=== PATIENT | male | born 1960 | race African-American/Black ===

== ENCOUNTER 2020-09-29 22:05 | Inpatient (IN) | payer MEDICAID, OTHER ==
[~2020-09-29] VITALS: Ht 185.4 cm; Wt 134.8 kg
[2020-09-30] MEDS ORDERED: CLINDAMYCIN 900MG IV 50 ML IV ONE (04:15)
[2020-09-30] MEDS ORDERED: MORPHINE SULF INJ 2 MG/ML SYRINGE 1ML IV ONE (04:15)
[2020-09-30 05:39] LABS: Basophils # (auto) 0 10 ^3/uL (0-0.2); Basophils % (auto) 1.1 % (0.0-2.0); Eosinophils # (auto) 0 10 ^3/uL (0-0.8); Eosinophils % (auto) 1.1 % (0.0-7.0); Hematocrit 40.5 % (41.0-53.0); Hemoglobin 13.6 g/dL (13.5-17.5); Lymphocytes % (auto) 35.6 % (10.0-50.0); Mean Corpuscular Hemoglobin 30.9 pg (28.0-32.0); Mean Corpuscular Hgb Conc. 33.5 g/dL (32.0-36.0); Mean Corpuscular Volume 92.3 fL (80.0-100.0); Monocytes # (auto) 0.3 10 ^3/uL (0-1.3); Monocytes % (auto) 9.2 % (0.0-12.0); Neutrophils # (auto) 1.5 10 ^3/uL (1.6-8.6); Nucleated Red Blood Cells % 0.1 %; Platelet Count (auto) 209 10^3/uL (140-450); Red Blood Cells 4.39 10^6/uL (4.5-5.90); Red Cell Distribution Width 14.3 % (11.8-14.3); White Blood Cell 2.9 10^3/uL (4.4-10.8)
[2020-09-30 06:08] LABS: Albumin 3.3 g/dL (3.4-5.0); Calcium 7.6 mg/dL (8.5-10.1); Potassium 3.4 mmol/L (3.5-5.1)
[2020-09-30 06:12] LABS: Bilirubin, Total 0.6 mg/dL (0.2-1.0); Total Protein 7.5 g/dL (6.4-8.2)
[2020-09-30 07:53] LABS: BUN/Creatinine Ratio 16.9
[2020-09-30] MEDS ORDERED: ONDANSETRON HCL 4 MG/2 ML VIAL IV PRN (08:00)
[2020-09-30] MEDS ORDERED: MORPHINE SULF INJ 2 MG/ML SYRINGE 1ML IV PRN (08:00)
[2020-09-30] MEDS ORDERED: NITROGLYCERIN 0.4 MG SL TAB SL PRN (08:00)
[2020-09-30] MEDS ORDERED: ACETAMINOPHEN 325 MG TAB PO PRN (08:00)
[2020-09-30] MEDS ORDERED: DOCUSATE SOD 100 MG CAP PO PRN (08:00)
[2020-09-30] MEDS ORDERED: POTASSIUM CHL 20 Meq TABLET PO ONE (08:15)
[2020-09-30 09:38] LABS: Basophils # (auto) 0 10 ^3/uL (0-0.2); Basophils % (auto) 1.2 % (0.0-2.0); Eosinophils # (auto) 0 10 ^3/uL (0-0.8); Eosinophils % (auto) 1.4 % (0.0-7.0); Hematocrit 42.8 % (41.0-53.0); Hemoglobin 14.5 g/dL (13.5-17.5); Lymphocytes # (auto) 0.8 10 ^3/uL (0.4-5.4); Lymphocytes % (auto) 30.1 % (10.0-50.0); Mean Corpuscular Hemoglobin 31.1 pg (28.0-32.0); Mean Corpuscular Hgb Conc. 33.9 g/dL (32.0-36.0); Mean Corpuscular Volume 91.9 fL (80.0-100.0); Monocytes # (auto) 0.3 10 ^3/uL (0-1.3); Monocytes % (auto) 10.6 % (0.0-12.0); Neutrophils # (auto) 1.5 10 ^3/uL (1.6-8.6); Neutrophils % (auto) 56.7 % (37.0-80.0); Platelet Count (auto) 222 10^3/uL (140-450); Red Blood Cells 4.66 10^6/uL (4.5-5.90); White Blood Cell 2.6 10^3/uL (4.4-10.8)
[2020-09-30 09:53] LABS: Albumin 3.6 g/dL (3.4-5.0); Calcium 8.7 mg/dL (8.5-10.1); Potassium 3.3 mmol/L (3.5-5.1)
[2020-09-30 09:57] LABS: BUN/Creatinine Ratio 15.9; Bilirubin, Total 0.5 mg/dL (0.2-1.0); Total Protein 8.2 g/dL (6.4-8.2)
[2020-09-30] MEDS: FAMOTIDINE 20 MG TAB PO SCH ×2 (11:02→22:00)
[2020-09-30] MEDS: MULTIPLE VITAMIN TAB PO SCH (11:02)
[2020-09-30] MEDS: ENOXAPARIN SOD 60 MG/0.6 ML SYRINGE SC SCH ×2 (11:02→22:00)
[2020-09-30] MEDS: ASCORBIC ACID 500 MG TAB PO SCH ×2 (11:02→22:00)
[2020-09-30] MEDS: ZINC SULFATE 220mg CAP or TAB PO SCH (11:02)
[2020-09-30] MEDS: SODIUM CHLOR 0.9% PF (SALINE LOCK) 10ML VIAL/SYR IV SCH ×2 (14:35→22:00)
[2020-09-30] MEDS: PIPERACILLIN-TAZOB 3.375GM 100 ML IV SCH ×2 (14:42→22:00)
[2020-09-30 21:25] VITALS: BP 122/68
[2020-09-30 22:00] VITALS: BP 120/74
[2020-10-01] MEDS ORDERED: HYDR25TA4 PO (02:26)
[2020-10-01] MEDS ORDERED: ASPI325T4 PO (02:26)
[2020-10-01] MEDS ORDERED: DIVA250T12 PO (02:26)
[2020-10-01 05:00] VITALS: BP 126/67
[2020-10-01] MEDS: HYDROcodone-ACET 5/325MG TAB PO PRN ×2 (05:00→22:30)
[2020-10-01] MEDS: SODIUM CHLOR 0.9% PF (SALINE LOCK) 10ML VIAL/SYR IV SCH ×3 (05:13→21:08)
[2020-10-01] MEDS: PIPERACILLIN-TAZOB 3.375GM 100 ML IV SCH ×3 (06:15→21:06)
[2020-10-01 08:00] VITALS: BP 114/71
[2020-10-01 08:15] LABS: Basophils # (auto) 0 10 ^3/uL (0-0.2); Basophils % (auto) 0.9 % (0.0-2.0); Eosinophils # (auto) 0.1 10 ^3/uL (0-0.8); Eosinophils % (auto) 2.1 % (0.0-7.0); Hematocrit 38.2 % (41.0-53.0); Hemoglobin 12.9 g/dL (13.5-17.5); Lymphocytes # (auto) 0.7 10 ^3/uL (0.4-5.4); Lymphocytes % (auto) 27.6 % (10.0-50.0); Mean Corpuscular Hemoglobin 31.3 pg (28.0-32.0); Mean Corpuscular Hgb Conc. 33.9 g/dL (32.0-36.0); Mean Corpuscular Volume 92.4 fL (80.0-100.0); Monocytes # (auto) 0.3 10 ^3/uL (0-1.3); Monocytes % (auto) 13.6 % (0.0-12.0); Neutrophils # (auto) 1.4 10 ^3/uL (1.6-8.6); Neutrophils % (auto) 55.8 % (37.0-80.0); Nucleated Red Blood Cells % 0.1 %; Platelet Count (auto) 191 10^3/uL (140-450); Red Blood Cells 4.13 10^6/uL (4.5-5.90); Red Cell Distribution Width 14.6 % (11.8-14.3); White Blood Cell 2.5 10^3/uL (4.4-10.8)
[2020-10-01 08:30] LABS: Potassium 3.7 mmol/L (3.5-5.1)
[2020-10-01 08:44] LABS: Bilirubin, Total 0.4 mg/dL (0.2-1.0); Calcium 8.3 mg/dL (8.5-10.1)
[2020-10-01] MEDS ORDERED: POTASSIUM CHL 20 Meq TABLET PO ONE (08:45)
[2020-10-01] MEDS: ZINC SULFATE 220mg CAP or TAB PO SCH (10:07)
[2020-10-01] MEDS: MULTIPLE VITAMIN TAB PO SCH (10:08)
[2020-10-01] MEDS: ENOXAPARIN SOD 60 MG/0.6 ML SYRINGE SC SCH ×2 (10:09→21:07)
[2020-10-01] MEDS: ASCORBIC ACID 500 MG TAB PO SCH ×2 (10:09→21:09)
[2020-10-01] MEDS: FAMOTIDINE 20 MG TAB PO SCH ×2 (10:09→21:06)
[2020-10-01] MEDS: MORPHINE SULFATE 4 MG/ML SYR/VIAL IV PRN (21:08)
[2020-10-01 22:00] VITALS: BP 132/72
[2020-10-02 05:00] VITALS: BP_SYST 129; BP_SYST 136; BP_DIAS 84
[2020-10-02] MEDS: SODIUM CHLOR 0.9% PF (SALINE LOCK) 10ML VIAL/SYR IV SCH ×3 (05:10→21:45)
[2020-10-02] MEDS: PIPERACILLIN-TAZOB 3.375GM 100 ML IV SCH ×3 (05:11→21:45)
[2020-10-02] MEDS: MORPHINE SULFATE 4 MG/ML SYR/VIAL IV PRN ×3 (05:16→21:12)
[2020-10-02 07:32] VITALS: BP 111/79
[2020-10-02] MEDS: ZINC SULFATE 220mg CAP or TAB PO SCH (09:09)
[2020-10-02] MEDS: FAMOTIDINE 20 MG TAB PO SCH ×2 (09:09→21:45)
[2020-10-02] MEDS: MULTIPLE VITAMIN TAB PO SCH (09:10)
[2020-10-02] MEDS: ASCORBIC ACID 500 MG TAB PO SCH ×2 (09:10→21:45)
[2020-10-02] MEDS: HCTZ 25 MG TAB PO SCH (09:10)
[2020-10-02] MEDS: ENOXAPARIN SOD 60 MG/0.6 ML SYRINGE SC SCH ×2 (09:14→21:45)
[2020-10-02] MEDS ORDERED: ASPirin 325 MG TAB PO SCH (10:00)
[2020-10-02 16:00] VITALS: BP 117/90
[2020-10-02 22:00] VITALS: BP 134/78
[2020-10-03 05:00] VITALS: BP 119/83
[2020-10-03] MEDS: SODIUM CHLOR 0.9% PF (SALINE LOCK) 10ML VIAL/SYR IV SCH ×3 (06:30→22:12)
[2020-10-03] MEDS: PIPERACILLIN-TAZOB 3.375GM 100 ML IV SCH ×3 (06:30→22:14)
[2020-10-03 08:00] VITALS: BP 132/85
[2020-10-03] MEDS: ASCORBIC ACID 500 MG TAB PO SCH ×2 (10:00→22:14)
[2020-10-03] MEDS: HCTZ 25 MG TAB PO SCH (10:00)
[2020-10-03] MEDS: ASPirin 81 mg TAB PO SCH (10:00)
[2020-10-03] MEDS: ENOXAPARIN SOD 60 MG/0.6 ML SYRINGE SC SCH ×2 (10:00→22:14)
[2020-10-03] MEDS: FAMOTIDINE 20 MG TAB PO SCH ×2 (10:00→22:14)
[2020-10-03] MEDS: MULTIPLE VITAMIN TAB PO SCH (10:00)
[2020-10-03] MEDS: ZINC SULFATE 220mg CAP or TAB PO SCH (10:00)
[2020-10-03 16:00] VITALS: BP 132/90
[2020-10-03] MEDS: MORPHINE SULFATE 4 MG/ML SYR/VIAL IV PRN ×2 (16:58→23:20)
[2020-10-04] MEDS: HYDROcodone-ACET 5/325MG TAB PO PRN ×2 (00:59→20:56)
[2020-10-04] MEDS: SODIUM CHLOR 0.9% PF (SALINE LOCK) 10ML VIAL/SYR IV SCH ×3 (05:52→22:00)
[2020-10-04] MEDS: PIPERACILLIN-TAZOB 3.375GM 100 ML IV SCH ×3 (05:53→22:00)
[2020-10-04 08:00] VITALS: BP 134/92
[2020-10-04] MEDS: ZINC SULFATE 220mg CAP or TAB PO SCH (10:53)
[2020-10-04] MEDS: ASPirin 81 mg TAB PO SCH (10:53)
[2020-10-04] MEDS: MULTIPLE VITAMIN TAB PO SCH (10:54)
[2020-10-04] MEDS: FAMOTIDINE 20 MG TAB PO SCH ×2 (10:54→22:00)
[2020-10-04] MEDS: HCTZ 25 MG TAB PO SCH (10:54)
[2020-10-04] MEDS: ENOXAPARIN SOD 60 MG/0.6 ML SYRINGE SC SCH ×2 (10:55→22:00)
[2020-10-04] MEDS: ASCORBIC ACID 500 MG TAB PO SCH ×2 (10:55→22:00)
[2020-10-04] MEDS: MORPHINE SULFATE 4 MG/ML SYR/VIAL IV PRN ×2 (13:40→20:15)
[2020-10-04 22:00] VITALS: BP 143/94
[2020-10-05 05:00] VITALS: BP 133/87
[2020-10-05] MEDS: SODIUM CHLOR 0.9% PF (SALINE LOCK) 10ML VIAL/SYR IV SCH (06:45)
[2020-10-05] MEDS: PIPERACILLIN-TAZOB 3.375GM 100 ML IV SCH (06:46)
[2020-10-05] MEDS: MORPHINE SULFATE 4 MG/ML SYR/VIAL IV PRN (07:05)
[2020-10-05 08:01] VITALS: BP 128/79
[2020-10-05] MEDS: HCTZ 25 MG TAB PO SCH (10:33)
[2020-10-05] MEDS: CLINDAMYCIN HCL 150 MG CAP PO SCH ×2 (15:15→22:11)
[2020-10-05 15:38] VITALS: BP_SYST 151; BP_SYST 156; BP_DIAS 104; BP_DIAS 88
[2020-10-05 22:00] VITALS: BP 143/109
[2020-10-05] MEDS: HYDROcodone-ACET 5/325MG TAB PO PRN (22:12)
[2020-10-06] MEDS: HYDROcodone-ACET 5/325MG TAB PO PRN (04:00)
[2020-10-06 05:00] VITALS: BP 130/98
[2020-10-06] MEDS: CLINDAMYCIN HCL 150 MG CAP PO SCH (05:35)
[2020-10-06 08:00] VITALS: BP 141/90
== END 2020-10-06 10:15 | disposition home or self-care (01) | DRG 383 ==
LOC: EDBD 22:05 → ER 22:05 → TELE 22:06 → CENTRAL 09-30 19:38 → TELE-CENTR 09-30 19:40 → CENTRAL 10-02 07:16
PROVIDERS: ADMIT Nurse Practitioner Family; ATTEND Family Medicine
DX: L03.115 Cellulitis of right lower limb (principal); E66.01 Morbid (severe) obesity due to excess calories; R65.10 Systemic inflammatory response syndrome (SIRS) of non-infectious origin without acute organ dysfunction; I11.0 Hypertensive heart disease with heart failure; I50.9 Heart failure, unspecified; E87.6 Hypokalemia; M19.90 Unspecified osteoarthritis, unspecified site; F31.9 Bipolar disorder, unspecified; F17.210 Nicotine dependence, cigarettes, uncomplicated; Z20.822 Contact with and (suspected) exposure to COVID-19; Z68.39 Body mass index [BMI] 39.0-39.9, adult; Z59.0 Homelessness
CPT/HCPCS: 36415; 73700; 80053; 83615; 85025; 85652; 87040; 87426; 93971; 96365; 96367; 96372; 96375; G0378; J2405; J2543; J3490